=== PATIENT | male | born 1955 | race Caucasian/White ===

== ENCOUNTER 2018-04-30 05:55 | Day surgery (SDC) | payer MEDICARE ==
[~2018-04-30] VITALS: Ht 182.9 cm; Wt 108.9 kg
[~2018-04-30 05:55] MED LIST: BUPROPION XL300 MG PO; COZAAR100 MG PO; DOCUSATE SODIU100 MG PO; ENDOCET 10-3251 EACH PO; FENOFIBRATE160 MG PO; LORAZEPAM1 MG PO; LYRICA75 MG PO; MULTIVITAMINS1 EAC7 PO; OSTEO BI-FLEX1 EAC3 PO; PERCOCET 10-321 EACH PO; VALIUM5 MG PO; VENLAFAXINE H37.5 M2 PO; VITAMIN D-32000 UNIT PO
--- NOTE | 2018-04-30 07:43 | NUR ---
PT ALERT, ORIENTED AND READY FOR SOMETHING TO EAT! FIRST SCOPE, HAD FEW QUESTIONS, POSITIVE VISIT. EXTENDED A BLESSING, I WILL FOLLOW NEEDED
--- NOTE | 2018-04-30 08:24 | NUR ---
04/30/18 0824 Lisa Altman 0031 PT ARRIVED IN PACU AWAKE WITH NO C/O'S. ABD SOFT. 0800 OXYGEN REMOVED. SATS 98% ON RA. PT SITTING UP TALKING TO STAFF. 0820 PT DRESSED. DC INSTRUCTIONS GIVEN. TO DS TO WAIT FOR RIDE AT 0900.
--- NOTE | 2018-04-30 13:03 | OR ---
[facility] [address] [place], [place] [address] Signed DATE OF OPERATION: 04/30/2018 SURGEON: Patricia Vaughan MD PREOPERATIVE DIAGNOSIS: Mother with a history of colon cancer at age 87. POSTOPERATIVE DIAGNOSES: 1. 3 mm polyps x5 at 8 cm. 2. 3 mm polyps x3 at 22 cm (rectosigmoid junction). PROCEDURE: Colonoscopy with hot biopsy. ESTIMATED BLOOD LOSS: None. INDICATIONS: Pawel is a 62-year-old gentleman asked to see me for his initial colonoscopy. He said he has no lower GI complaints. His mother had developed colon cancer at age 87. Otherwise, he said she is pretty healthy. I met with Pawel in the office and I gave him a pamphlet on colonoscopy as well as colorectal polyps and cancer. He is very aware that the polyps grow and become the cancers. He understands colonoscopy along with its risks including, but not limited to gas bloating, crampy abdominal pain, bleeding, perforation, requiring surgery, and missed diagnosis. He also understands the need for IV conscious sedation. He does have some significant medical issues and requires bupropion, lorazepam, Percocet 10 mg, and venlafaxine each day. Consequently, our routine Versed and fentanyl simply not enough to put him asleep. We had an anesthesia provider help us with increased monitoring sedation with propofol. That actually worked out very nicely. Pawel had expressed understanding and wished to proceed. PROCEDURE NOTE: Pawel was taken into our endoscopy suite and placed in the left lateral decubitus position. He was given IV sedation with propofol per our nurse wildlife forensic geneticist. A digital rectal exam was performed and his prostate is a slightly indurated, but it is small and no dominant nodule. No external hemorrhoids. The adult colonoscope was introduced and advanced all the way around into the cecum under direct visualization of camera. His sigmoid colon just a little bit narrow and it took me a few minutes to get through there, but otherwise it went fine. His prep was good. We took pictures throughout for photodocumentation. The scope was slowly withdrawn. The above-mentioned polyps were Electronically Signed By: PATRICIA VAUGHAN MD 04/30/18 1303 PATIENT NAME: PAWEL PEDROZA OPERATIVE REPORT DATE OF : 51 REPORT #: [id number] PHYSICIAN: PATRICIA VAUGHAN MD PCP: KARO TOMLIN MD REPORT IS CONFIDENTIAL AND NOT TO BE RELEASED WITHOUT AUTHORIZATION [facility] [address], [place] [address] Signed easily removed with the help of a hot biopsy forceps. Upon retroflexion of scope, we did not see any specific pathology above the anal canal. After this, the gas was suctioned out. The colonoscope removed. Pawel tolerated the procedure quite well. RECOMMENDATIONS: I will see Pawel back in my office in 7 to 14 days to review his results. He will need colonoscopy every 5 years due to his family history. Patricia Vaughan MD ALB/MODL /[id number] cc: MD Karo Zamorano MD Copies: PATRICIA VAUGHAN MD, JONATHAN MD ~ Electronically Signed By: PATRICIA VAUGHAN MD 04/30/18 1303 PATIENT NAME: PAWEL PEDROZA OPERATIVE REPORT DATE OF : 51 REPORT #: [id number] PHYSICIAN: PATRICIA VAUGHAN MD PCP: KARO TOMLIN MD REPORT IS CONFIDENTIAL AND NOT TO BE RELEASED WITHOUT AUTHORIZATION
== END 2018-04-30 08:20 | disposition home or self-care (01) ==
LOC: DS 05:55
PROVIDERS: Colon & Rectal Surgery
PROC: 0DBN8ZZ Excision of Sigmoid Colon, Via Natural or Artificial Opening Endoscopic (ICD-10-PCS; 2018-04-30)
PROC: 0DBP8ZZ Excision of Rectum, Via Natural or Artificial Opening Endoscopic (ICD-10-PCS; principal; 2018-04-30 06:45)
DX: Z12.11 Encounter for screening for malignant neoplasm of colon (principal); K63.5 Polyp of colon; K62.1 Rectal polyp; I10 Essential (primary) hypertension; J44.9 Chronic obstructive pulmonary disease, unspecified; F32.9 Major depressive disorder, single episode, unspecified; G89.29 Other chronic pain; Z80.0 Family history of malignant neoplasm of digestive organs; Z88.8 Allergy status to other drugs, medicaments and biological substances; Z79.899 Other long term (current) drug therapy; Z87.891 Personal history of nicotine dependence
CPT/HCPCS: 88305; J2250; J2704; J3010; J7120

== ENCOUNTER 2023-01-08 07:59 | Day surgery (SDC) | payer MEDICARE ==
[2023-01-03 13:42] VITALS: BP 141/80
[~2023-01-08] VITALS: Ht 182.9 cm; Wt 110.0 kg
--- NOTE | ~2023-01-08 | OR ---
[facility] [address] [place] [address], [place] [address] Draft DATE OF OPERATION: 01/08/2023 SURGEON: Blair Son MD PREOPERATIVE DIAGNOSIS: Left pansinusitis. POSTOPERATIVE DIAGNOSIS: Left pansinusitis. PROCEDURE: Left guerra-sinusotomy. ANESTHESIA: General LMA, BIG DATA DEVELOPER, Anabelle. PREOPERATIVE HISTORY: Mr. Pedroza is a 67-year-old man with a long history of sinus problems, unresponsive to appropriate medications. He has had a CT scan showing opacification of the left ethmoid and sphenoid sinuses, left to the right side is clear. He was taken to the operating for the above-mentioned procedures. PROCEDURE AND FINDINGS: After informed consent, the patient was taken to the operating room, placed in the supine position where general LMA anesthesia was induced. The patient and procedure were verified. The patient was repositioned. Preop CT was viewed throughout. The patient received preoperative intranasal oxymetazoline and intravenous Ancef. Headlight and speculum exam of the nasal cavity showed the right side to be clear. Left side was approached. Middle turbinate was medialized. Ethmoid bulla was taken down with the Fernie. The anterior ethmoid air cells were filled with polypoid granular material. Minimal bleeding. Ethmoid air cells were all opened back to the posterior ethmoids. The sphenoid sinus was identified and entered with the Fernie. Anterior wall opened. Material removed from the sphenoid sinus appeared to be minimal material. The sphenoid sinus wall was opened wide, minimal bleeding throughout the procedure. Nasofrontal area was also opened with the Fernie. Material removed sent to pathology in formalin. The hemostasis was verified. Packing was placed. A Coburn pack coated with Neosporin in the middle meatus and a trimmed Merocel pack in the nasal cavity. The pharynx was suctioned clear of blood and secretions. The patient was then awakened, extubated, and transported to the recovery room in good condition. No complications. PATIENT NAME: JESSICA PEDROZA LEEANNJAY OPERATIVE REPORT DATE OF : 51 REPORT #: [id number] PHYSICIAN: BLAIR SON MD PCP: CLARK HENLEY REPORT IS CONFIDENTIAL AND NOT TO BE RELEASED WITHOUT AUTHORIZATION [facility] [address] [place] [id number] Draft BLOOD LOSS: Minimal. SPECIMEN: To pathology left sinus contents. PACKING: Two pieces of Merocel, left side. Blair Son MD GC/MODL /[id number] Copies: ~ PATIENT NAME: JESSICA PEDROZA OPERATIVE REPORT DATE OF : 51 REPORT #: [id number] PHYSICIAN: BLAIR SON MD PCP: CLARK HENLEY REPORT IS CONFIDENTIAL AND NOT TO BE RELEASED WITHOUT AUTHORIZATION
[~2023-01-08 07:59] MED LIST changes: +ACETAMINOPHEN500 MG PO; +DULOXETINE HCL60 MG PO; +IRBESARTAN150 MG PO; +LORAZEPAM0.5 MG PO
[2023-01-08] MEDS ORDERED: OXYCODONE HCL10 MG PO (08:21)
[2023-01-08 08:22] VITALS: BP 140/78
--- NOTE | 2023-01-08 09:50 | NUR ---
01/08/23 0950 Sheets,Paige 0939 PT ARRIVED TO PACU ON 6L VIA MASK, ORAL AIRWAY IN PLACE AND RESP EVEN AND UNLABORED. 0946 PT STARTS COUGHING AND ORAL AIRWAY REMOVED. PT EYES REMAIN CLOSED AND HOB INCREASED SLGIHTLY. 0949 O2 MASK REMOVED. PT REMAINS NONAROUSABLE TO TACTILE STIMULI WITH COUGHING OFF AND ON.
[2023-01-08 10:10] VITALS: BP 107/65
--- NOTE | 2023-01-08 10:20 | NUR ---
1010: PATIENT BACK IN DAY SURGERY ROOM FROM PACU. DROWSY. SLEEPING WHEN NOT DISTURBED, BUT EASILY AWAKENS TO VOICE. DENIES PAIN. VS CHECKED. NASAL PACKING IN LEFT SIDE OF NOSE. MOUSTACHE DRESSING IN PLACE. MOUSTACHE DRESSING CLEAN, DRY AND INTACT. IV SITE WNL. SCDs ON. CALL LIGHT WITHIN REACH. AT BEDSIDE.
[2023-01-08] MEDS ORDERED: CEPHALEXIN500 M1 PO (10:27)
--- NOTE | 2023-01-08 10:32 | NUR ---
CHECKED PATIENT. PATIENT AWAKENED EASILY TO VOICE. NO NEEDS AT THIS TIME. PATIENT BACK TO SLEEP. AT BEDSIDE. CALL LIGHT WITHIN REACH.
--- NOTE | 2023-01-08 10:57 | NUR ---
PATIENT MEDICATED FOR HEADACHE PAIN WITH OXYCODONE. TOLERATED PUDDING. C/O HEADACHE PAIN. RATES PAIN 5/10. AT BEDSIDE. CALL LIGHT WITHIN REACH.
[2023-01-08 11:15] VITALS: BP 125/65
--- NOTE | 2023-01-08 14:01 | NUR ---
1115: VS CHECKED. MOUSTACHE DRESSING CLEAN, DRY AND INTACT. PATIENT ASSISTED OOB AND TO BATHROOM USING PERSONAL CANE. GAIT STEADY. VOID WITHOUT DIFFICULTY. GATI STEADY BACK TO ROOM. PATIENT GETTING DRESSED. 1125: MOUSTACHE DRESSING CHANGED DUE TO SATURATION. DISCHARGE INSTRUCTIONS GIVEN TO PATIENT AND . IV DC'D WNL. TIP INTACT. DRESSING APPLIED. 1142: MOUSTACHE DRESSING CHANGED AGAIN DUE TO SATURATION. PATIENT DISCHARGED TO HOME VIA WHEELCHAIR WITH .
--- NOTE | 2023-01-10 15:54 | PATH ---
[facility] [address] [place], [place] [address] Signed SPECIMEN(S): A LT SINUS CONTENTS SPECIMEN SOURCE: A. LT SINUS CONTENTS CLINICAL HISTORY: Sinusitis vs allergic rhinitis. FINAL PATHOLOGIC DIAGNOSIS: Left sinus contents: - Benign respiratory type mucosa with focal mild chronic inflammation. - Focal acute inflammation. - Benign bone fragments. - Negative for significantly increased eosinophils. JVR:slc MICROSCOPIC EXAMINATION: Histologic sections of all submitted blocks are examined by light microscopy. These findings, together with the gross examination, support the pathologic diagnosis. GROSS DESCRIPTION: The specimen, labeled and designated "Richie, left sinus contents," is received in formalin and consists of multiple fragments of red-cadet soft tissue admixed with possible bone and cartilage aggregating to 2.5 x 2.2 x 0.5 cm. The tissue is filtered into a mesh bag and entirely submitted in (A1) following decalcification in decal stat. RENATE (under the direct supervision of a pathologist) The Gross Description was prepared using a voice recognition system. The report was reviewed for accuracy; however, sound-alike word errors, addition and/or deletions may occur. If there is any question about this report, please contact Client Services. PERFORMING LABORATORY: Technical component was performed by [facility], [address] [place] [id number] (CLIA# [id number]). Professional interpretation was performed by [facility], [address] [place] [phone] (CLIA#: [id number]). Diagnostician: Mario Alberto Valderrama MD Pathologist PATIENT NAME: JESSICA PEDROZA PATHOLOGY DATE OF : 51 REPORT #: [id number] PHYSICIAN: EVONNE PATHOLOGY PCP: CLARK HENLEY REPORT IS CONFIDENTIAL AND NOT TO BE RELEASED WITHOUT AUTHORIZATION [facility] [address] [place] [id number] Signed Electronically Signed 01/10/2023 Copies: ~ PATIENT NAME: JESSICA PEDROZA PATHOLOGY DATE OF : 51 REPORT #: [id number] PHYSICIAN: EVONNE PATHOLOGY PCP: CLARK HENLEY REPORT IS CONFIDENTIAL AND NOT TO BE RELEASED WITHOUT AUTHORIZATION
== END 2023-01-08 11:42 | disposition home or self-care (01) ==
LOC: OPS 07:59 → DS 07:59 → OPS 09:00
PROVIDERS: ATTEND Otolaryngology
PROC: 09CX8ZZ Extirpation of Matter from Left Sphenoid Sinus, Via Natural or Artificial Opening Endoscopic (ICD-10-PCS; 2023-01-08)
PROC: 09CT8ZZ Extirpation of Matter from Left Frontal Sinus, Via Natural or Artificial Opening Endoscopic (ICD-10-PCS; 2023-01-08)
PROC: 09CV8ZZ Extirpation of Matter from Left Ethmoid Sinus, Via Natural or Artificial Opening Endoscopic (ICD-10-PCS; principal; 2023-01-08 09:00)
DX: J32.4 Chronic pansinusitis (principal)
CPT/HCPCS: 00160; A9270; J0690; J2250; J2405; J2704; J3490; J7121

== ENCOUNTER 2024-10-08 07:50 | Day surgery (SDC) | payer MEDICARE, OTHER ==
[~2024-10-08] VITALS: Ht 182.9 cm; Wt 109.0 kg
[~2024-10-08 07:50] MED LIST changes: +CEPHALEXIN500 M1 PO; +EFFEXOR XR75 MG PO; +IBLOOD GLUCOSE TEST STRIP 1 EA TEST VI PRN; +LACTATED RINGER'S 1,000 ML IV SCH; +LIDOCAINE HCL 1% 5 ML SDV INJ ONE; +NIACIN500 M1 PO; +OXYCODONE HCL10 MG PO
[2024-10-08 08:20] VITALS: BP 147/83
[2024-10-08] MEDS ORDERED: LIDOCAINE HCL 2% 5 ML SDV ONE (09:52)
[2024-10-08] MEDS ORDERED: GLUCAGON,HUMAN RECOMBINANT 1 MG/ML VIAL ONE (10:21)
--- NOTE | 2024-10-08 10:39 | NUR ---
10/08/24 Dorota9 Tamera Stafford 1034-PATIENT ARRIVED TO PACU ON RA RR EVEN. PATIENT REACTIVE TO VERBAL STIMULI DENIES PAIN OR NAUSEA. LAYING LEFT LATERAL ABDOMEN SOFT. IVF INFUSING. SR HR 60'S. PATIENT GOES TO SLEEP.
[2024-10-08 11:12] VITALS: BP 133/85
== END 2024-10-08 11:15 | disposition home or self-care (01) ==
LOC: DS 07:50
PROVIDERS: ATTEND Surgery
PROC: 0DJD8ZZ Inspection of Lower Intestinal Tract, Via Natural or Artificial Opening Endoscopic (ICD-10-PCS; principal; 2024-10-08 09:25)
DX: Z12.11 Encounter for screening for malignant neoplasm of colon (principal); K57.30 Diverticulosis of large intestine without perforation or abscess without bleeding; Z80.0 Family history of malignant neoplasm of digestive organs; Z86.0100 Personal history of colon polyps, unspecified; Z79.899 Other long term (current) drug therapy; Z88.1 Allergy status to other antibiotic agents; Z88.8 Allergy status to other drugs, medicaments and biological substances
CPT/HCPCS: 00812; J1610; J2003; J2704; J7121